=== PATIENT | male | born 1995 | race Caucasian/White ===

== ENCOUNTER → 2021-05-01 | Emergency (ER) | payer SELFPAY ==
[~2021-05-01] VITALS: Ht 182.9 cm; Wt 81.6 kg
[~2021-05-01] MED LIST: NALO4SPR NS
[2021-05-01 22:37] VITALS: BP 120/92
--- NOTE | 2021-05-01 23:39 | NUR ---
Patient does not wish to proceed with medical care recommended by Dr. BARNES. Patient given information related to possible complications, up to and including , which could occur as a result of leaving the hospital at this time. Patient verbalizes understanding of risks involved due to leaving against medical advice. Patient has signed AMA form.
== END ==
LOC: ER 22:40
DX: T40.411A Poisoning by fentanyl or fentanyl analogs, accidental (unintentional), initial encounter (principal); Y92.89 Other specified places as the place of occurrence of the external cause